=== PATIENT | male | born 1955 | race African-American/Black ===

== ENCOUNTER 2020-06-20 07:01 | Outpatient (CLI) | payer OTHER ==
--- NOTE | 2020-06-15 09:44 | NUR ---
LMOM WITH CALL BACK NUMBER
[~2020-06-20] VITALS: Ht 193 cm; Wt 120.4 kg
[2020-06-20] VITALS (20 sets, daily range): BP systolic 103–146; BP diastolic 62–89; PULSE 64–93
[~2020-06-20 07:01] MED LIST: ASPIR-LOW81 MG PO; HCTZ 25MG25 MG PO; ZYRTEC 10MG PO
[2020-06-20] MEDS ORDERED: COZAAR 25MG25 MG/TAB PO (07:14)
[2020-06-20] MEDS ORDERED: UROXATRAL10 M1 PO (07:16)
[2020-06-20] MEDS ORDERED: PRILOSEC 20MG20 MG PO (07:17)
[2020-06-20] MEDS ORDERED: NEURONTIN100 MG/CAP PO (07:17)
[2020-06-20] MEDS ORDERED: HCTZ 25MG TAB25 MG PO (07:17)
[2020-06-20] MEDS ORDERED: VITAMIN D31000 I1 (07:18)
[2020-06-20] MEDS ORDERED: VITAMIN E1000 U/CAP PO (07:19)
[2020-06-20] MEDS ORDERED: MS CONTIN 115 MG/TAB PO (07:32)
[2020-06-20] MEDS ORDERED: COLACE 100100 MG/CAP PO (07:33)
--- NOTE | 2020-06-20 08:15 | NUR ---
pt to ct per ambulation. Pt positioned in prone position. Monitors applied. O2 on at 2l/nc.
--- NOTE | 2020-06-20 08:25 | NUR ---
Dr Bazzi into room and viewing ct images.
--- NOTE | 2020-06-20 08:46 | NUR ---
Specimens obtained by Dr Bazzi. Specimens placed in formalin. Specimen labeled.
--- NOTE | 2020-06-20 09:04 | NUR ---
Pt arrived via cart to room 9,report from Malik Lewis.
--- NOTE | 2020-06-20 10:52 | NUR ---
Spoke with Radiologist,ok to discharge home.
--- NOTE | 2020-06-20 11:20 | NUR ---
Discharge instructions given to pt.pt verbalized understanding.INT removed,catheter tip intact.
--- NOTE | 2020-06-20 11:28 | NUR ---
Pt escorted out via wheelchair by this nurse.
== END 2020-06-20 11:36 | disposition home or self-care (01) ==
LOC: COL.RAD 07:01
DX: R91.8 Other nonspecific abnormal finding of lung field (principal)
CPT/HCPCS: J2250; J3010

== ENCOUNTER 2020-08-02 10:26 | Day surgery (SDC) | payer OTHER ==
[~2020-08-02] VITALS: Ht 193 cm; Wt 117.6 kg
[~2020-08-02 10:26] MED LIST changes: +COLACE 100100 MG/CAP PO; +COZAAR 25MG25 MG/TAB PO; +HCTZ 25MG TAB25 MG PO; +MS CONTIN 115 MG/TAB PO; +NEURONTIN100 MG/CAP PO; +PRILOSEC 20MG20 MG PO; +UROXATRAL10 M1 PO; +VITAMIN D31000 I1; +VITAMIN E1000 U/CAP PO
[2020-08-02 10:55] VITALS: BP 111/48; PULSE 91; TEMP 98.2
[2020-08-02] MEDS ORDERED: VITAMIN D3500 UNIT/5 PO (11:33)
[2020-08-02] MEDS ORDERED: MS CONTIN 115 MG/TAB PO (11:34)
[2020-08-02] MEDS ORDERED: ZOFRAN8 MG PO (11:35)
[2020-08-02] MEDS ORDERED: KEYTRUDA25 MG/ML IV (11:36)
[2020-08-02 13:05] VITALS: BP 102/69; PULSE 74
--- NOTE | 2020-08-02 13:05 | NUR ---
Patient returns to room 5 per cart from surgery accompanied by Elise PATTON and Tania COTTON. Patient arouses to verbal stimuli. Temp 98.2 and room air sats 98%. Dressing covering right port a catheter insertion site dry and Swanson needle in place. Denies pain or nausea. Spouse in room. IV fluids infusing.
[2020-08-02 13:20] VITALS: BP 95/58; PULSE 65
--- NOTE | 2020-08-02 13:20 | NUR ---
Room air sats 97%. Resting and talking with spouse. Drinking apple juice.
[2020-08-02 13:35] VITALS: BP 99/66; PULSE 74
--- NOTE | 2020-08-02 13:35 | NUR ---
Continues to sip on juice. Denies pain or nausea.
--- NOTE | 2020-08-02 13:50 | NUR ---
IV discontinued and site free of redness. Patient dresses self. Given dismissal instructions and voices understanding of these. Patient dismissed to home driven by spouse and taken to the front door per wheelchair and assisted into vehicle.
== END 2020-08-02 13:50 | disposition home or self-care (01) ==
LOC: SDCO 10:26
DX: C34.92 Malignant neoplasm of unspecified part of left bronchus or lung (principal); I10 Essential (primary) hypertension; G47.33 Obstructive sleep apnea (adult) (pediatric); Z20.828 Contact with and (suspected) exposure to other viral communicable diseases; K21.9 Gastro-esophageal reflux disease without esophagitis; E66.01 Morbid (severe) obesity due to excess calories
CPT/HCPCS: C1788; J1644; J2704; J7120

== ENCOUNTER → 2024-06-22 | Outpatient (CLI) | payer MEDICARE, OTHER ==
[~2024-06-22] MED LIST changes: +KEYTRUDA25 MG/ML IV; +VITAMIN D3500 UNIT/5 PO; +ZOFRAN8 MG PO
[2024-06-22 12:51] LABS: HEMOGLOBIN 12.8 g/dl (13.5-18.0); MEAN CELL VOLUME 86 fl (80.0-100.0); MEAN CORPUSCULAR HEMOGLOBIN 28 pg (27-31); MEAN CORPUSCULAR HGB CONC 33 g/dl (33.0-37.0); MEAN PLATELET VOLUME 10.1 fl (7.4-10.4); PLATELET COUNT 218 K/mm3 (130-400); RED BLOOD COUNT 4.54 M/mm3 (4.20-5.60); REDCELL DISTRIBUTION WIDTH-CV 18.2 % (11.5-14.5)
[2024-06-22 13:07] LABS: ALBUMIN 3.5 g/dL (3.4-4.8); BILIRUBIN,TOTAL 0.4 mg/dL (0.2-1.2); CALCIUM 9.4 mg/dL (8.4-10.2); CREATININE, serum 1.43 mg/dL (0.72-1.25); POTASSIUM 4.4 mEq/L (3.5-4.5); TOTAL PROTEIN 8.3 g/dl (6.2-8.1)
[2024-06-22 14:12] LABS: BASOPHIL 2 % (0-2); EOSINOPHIL 3 % (0-4); LYMPHOCYTE 29 % (20.0-51.0); NEUTROPHILS 56 % (42.0-75.2); PLATELET ESTIMATE NORMAL (NORMAL)
== END ==
LOC: COL.LAB 12:19
PROVIDERS: Internal Medicine
DX: C34.12 Malignant neoplasm of upper lobe, left bronchus or lung (principal)